=== PATIENT | male | born 1985 | race Caucasian/White ===

== ENCOUNTER 2023-05-29 14:13 | Emergency (ER) | payer OTHER ==
[2023-05-29 14:31] VITALS: BP 156/102; PULSE 76; RESP 18; TEMP 98.3; BMI 37.1
[2023-05-29] MEDS ORDERED: AMOX TR/POT CLAV 875MG/125MG TABLETS (FP) PO ONE (15:03)
[2023-05-29] MEDS ORDERED: KETOROLAC TROMETHAMINE 30 MG/1 ML VIAL IM ONE (15:03)
[2023-05-29] MEDS ORDERED: AMOX TR/POT CLAV 875MG/125MG TABLETS (FP) ONE (15:06)
[2023-05-29] MEDS ORDERED: KETOROLAC TROMETHAMINE 30 MG/1 ML VIAL ONE (15:06)
== END 2023-05-29 15:58 | disposition home or self-care (01) ==
LOC: JERFT 14:13
PROC: 3E0233Z Introduction of Anti-inflammatory into Muscle, Percutaneous Approach (ICD-10-PCS; principal; 2023-05-29)
DX: H92.02 Otalgia, left ear (principal); H66.012 Acute suppurative otitis media with spontaneous rupture of ear drum, left ear
CPT/HCPCS: 87070; 87186; 87205; 99284-25